=== PATIENT | female | born 1960 | race Caucasian/White ===

== ENCOUNTER → 2017-04-21 | Outpatient (CLI) | payer BC ==
[~2017-04-21] MED LIST: CALCIUM 600-D 61 TAB PO; FISH OIL500 MG PO; MULTI VITAMINS1 TAB PO; NORCO 325 MG-51 TAB PO; VITAMIN E 400 U4001 PO; VITAMINE200
== END ==
LOC: MC.RAD 09:07
DX: Z12.31 Encounter for screening mammogram for malignant neoplasm of breast (principal); N64.89 Other specified disorders of breast

== ENCOUNTER → 2017-04-24 | Outpatient (CLI) | payer BC | LOC: MC.RAD 10:55 | DX: N63 Unspecified lump in breast (principal); N64.89 Other specified disorders of breast ==

== ENCOUNTER → 2018-05-04 | Outpatient (CLI) | payer BC | LOC: MC.RAD 14:13 | DX: Z12.31 Encounter for screening mammogram for malignant neoplasm of breast (principal) ==

== ENCOUNTER → 2018-05-06 | Outpatient (CLI) | payer BC | LOC: MC.RAD 13:54 | DX: R92.8 Other abnormal and inconclusive findings on diagnostic imaging of breast (principal) ==

== ENCOUNTER → 2019-05-05 | Outpatient (CLI) | payer BC | LOC: MC.RAD 07:30 | DX: Z12.31 Encounter for screening mammogram for malignant neoplasm of breast (principal); Z98.890 Other specified postprocedural states; Z85.3 Personal history of malignant neoplasm of breast ==

== ENCOUNTER → 2020-05-08 | Outpatient (CLI) | payer BC | LOC: MC.RAD 08:38 | DX: Z12.31 Encounter for screening mammogram for malignant neoplasm of breast (principal); Z85.3 Personal history of malignant neoplasm of breast ==

== ENCOUNTER → 2021-05-16 | Outpatient (CLI) | payer BC | LOC: MC.RAD 07:30 | DX: Z12.31 Encounter for screening mammogram for malignant neoplasm of breast (principal); Z98.82 Breast implant status; Z85.3 Personal history of malignant neoplasm of breast ==

== ENCOUNTER → 2022-05-17 | Outpatient (CLI) | payer BC | LOC: MC.RAD 07:00 | DX: Z12.31 Encounter for screening mammogram for malignant neoplasm of breast (principal); Z85.3 Personal history of malignant neoplasm of breast ==